=== PATIENT | male | born 1995 | race Hispanic/Latino ===

== ENCOUNTER 2017-04-02 16:00 | Emergency (ER) | payer OTHER ==
[~2017-04-02] VITALS: Ht 185.4 cm; Wt 90.7 kg
--- NOTE | 2017-04-02 16:20 | ED UPPER/LOWER EXTREMITY COMPL ---
History of Present Illness General Chief Complaint: Shoulder Injury Stated Complaint: DISLOCATION OF LEFT SHOULDER Source: patient, friend Exam Limitations: no limitations Vital Signs & Intake/Output Vital Signs & Intake/Output Vital Signs Date Time Temp Pulse Resp B/P B/P Pulse O2 O2 Flow FiO2 Mean Ox Delivery Rate 04/02 1610 98.3 90 15 153/85 96 Room Air Room Air Allergies Coded Allergies: No Known Allergies (04/02/17) Reconcile Medications Multivitamin (Multi-Day Vitamins) 1 EACH TABLET 1 TAB PO DAILY SUPPLEMENT ( Reported) Oxycodone HCl/Acetaminophen (Percocet 5-325 MG Tablet) 5 MG-325 MG TABLET 1-2 TAB PO Q6P PRN PAIN Triage Note: PT TO ED FOR L SHOULDER DISLOCATION, PT WAS BEING PULLED ON A TUBE FROM A BOAT AND HIS SHOULDER BECAME DISLOCATED. PT REPORTS HE DID DRINK ETOH TODAY, BUT DOES NOT REPORT HOW MUCH. Triage Nurses Notes Reviewed? yes HPI: Patient was tubing and he lost his balance and his left arm jerked forward. Patient felt his left shoulder dislocated. Patient has dislocated his shoulder many times in the past. Patient attempted to put it back in on his own but was unsuccessful so he comes into the emergency room. Patient is complaining of 10 out of 10 pain to his left shoulder. The pain increases with any movement. There is no radiation. The pain is throbbing in nature. Patient denies any other injury. Past History Travel History Traveled to [place] past 21 day No Medical History Any Pertinent Medical History? none Neurological: NONE EENT: NONE Cardiovascular: NONE Respiratory: NONE Gastrointestinal: NONE Hepatic: NONE Renal: NONE Musculoskeletal: SHOULDER DISLOCATION Psychiatric: NONE Endocrine: NONE Blood Disorders: NONE Cancer(s): NONE PHARMACY HELPER/Reproductive: NONE Surgical History Surgical History: non-contributory Psychosocial History What is your primary language Faroese Tobacco Use: Never used ETOH Use: heavy use Illicit Drug Use: denies illicit drug use Family History Hx Contributory? No Review of Systems Review of Systems Constitutional: Reports: no symptoms. Respiratory: Reports: no symptoms. Cardiovascular: Reports: no symptoms. Gastrointestinal/Abdominal: Reports: no symptoms. Musculoskeletal: Reports: see HPI, joint pain. Neurological/Psychological: Reports: no symptoms. Hematologic/Endocrine: Reports: no symptoms. Immunological: Reports: no symptoms. Physical Exam Physical Exam General Appearance: well developed/nourished, alert, awake, moderate distress Head: atraumatic, normal appearance Eyes: Bilateral: PERRL, EOMI. Ears, Nose, Throat: normal pharynx, normal ENT inspection, hearing grossly normal Neck: normal inspection, supple, full range of motion Cardiovascular/Respiratory: normal breath sounds, normal peripheral pulses, regular rate/rhythm, no respiratory distress Back: normal inspection, normal range of motion Shoulder Left: deformity, evidence of injury, soft tissue tenderness Elbow Left: normal range of motion, normal inspection Hand Left: normal inspection, normal range of motion Neurologic/Tendon: normal sensation Skin: intact, normal color, warm/dry Lymphatic: no anterior cervical ulysses Progress Differential Diagnosis: dislocation, fracture Plan of Care: Orders Procedure Date/time Status XRY-SHOULDER COMPLETE-LEFT 04/02 1713 Active Durable Medical Equipment 04/02 164 Active Diagnostic Imaging: Viewed by Me: Radiology Read. Discussed w/RAD: Radiology Read. Radiology Impression: PATIENT: NINOSKA LEE PRESENT AGE: 22 PATIENT ACCOUNT NO: [id number] : 93 LOCATION: [facility] ORDERING PHYSICIAN: XENA KIRKLAND MD SERVICE DATE: 04/02/17 EXAM TYPE: RAD - XRY-SHOULDER COMPLETE-LEFT EXAMINATION: SHOULDER 3 VIEWS, LEFT CLINICAL INFORMATION: Left shoulder pain. Dislocation. COMPARISON: None. TECHNIQUE: AP views of the left shoulder were obtained in internal and external rotation. In addition, a Y view was obtained. FINDINGS: There is inferior dislocation of the left glenohumeral joint. There are no discernible fractures. The left AC joint joint is intact. IMPRESSION: Left shoulder dislocation. DICTATED BY: ROBERTO CANO MD DATE/TIME DICTATED:04/02/171651 ENGINEERING OPERATIONS LEADER:PRECIOUS DATE/TIME TRANSCRIBED:04/02/171651 CONFIDENTIAL, DO NOT COPY WITHOUT APPROPRIATE AUTHORIZATION. <Electronically signed in Other Vendor System> SIGNED BY: ROBERTO CANO MD 04/02/171654 Departure Departure Disposition: HOME OR SELF CARE Condition: Stable Clinical Impression Primary Impression: Dislocation, shoulder, anterior Qualifiers: Encounter type: initial encounter Laterality: left Qualified Code: S43.015A - Anterior dislocation of left humerus, initial encounter Referrals: ALLYSSA TEE MD Additional Instructions: KEEP ARM IN SLING TAKE PERCOCET NEEDED FOLLOW UP WITH DR. TEE FOR POSSIBLE SURGERY Departure Forms: Customer Survey General Discharge Information Prescriptions: Current Visit Scripts Oxycodone HCl/Acetaminophen (Percocet 5-325 MG Tablet) 1-2 TAB PO Q6P PRN PAIN #20 TAB Procedures Joint Reduction Joint Reduction Site: shoulder (L) Conscious Sedation: performed by me Reduction Attempts: 1 Pre-Procedure NV Exam: Yes Post-Procedure NV Exam: Yes Post Joint Reduction Film: joint reduced
--- NOTE | 2017-04-02 16:55 | RADIOLOGY REPORT ---
EXAMINATION: SHOULDER 3 VIEWS, LEFT CLINICAL INFORMATION: Left shoulder pain. Dislocation. COMPARISON: None. TECHNIQUE: AP views of the left shoulder were obtained in internal and external rotation. In addition, a Y view was obtained. FINDINGS: There is inferior dislocation of the left glenohumeral joint. There are no discernible fractures. The left AC joint joint is intact. IMPRESSION: Left shoulder dislocation.
[2017-04-02] MEDS ORDERED: MULTI-DAY VITA1 EACH PO (17:25)
[2017-04-02] MEDS ORDERED: PERCOCET 5-3251 EACH PO (17:46)
--- NOTE | 2017-04-02 17:57 | RADIOLOGY REPORT ---
EXAMINATION: XR SHOULDER, LEFT CLINICAL INFORMATION: Postreduction. COMPARISON: Same day left shoulder radiograph. TECHNIQUE: AP and Y views of the left shoulder are provided. FINDINGS: There has been interval reduction of the previously dislocated left shoulder. There is no discernible fracture. IMPRESSION: Interval reduction of previously dislocated left shoulder.
[2017-04-02 17:58] VITALS: BP 138/65
== END 2017-04-02 18:08 ==
LOC: ERH 16:00
DX: S43.012A Anterior subluxation of left humerus, initial encounter (principal); X58.XXXA Exposure to other specified factors, initial encounter; Y93.16 Activity, rowing, canoeing, kayaking, rafting and tubing; Y92.9 Unspecified place or not applicable
CPT/HCPCS: 73030-LT; 96361; 96374; 96375